=== PATIENT | male | born 1980 | race Caucasian/White ===

== ENCOUNTER → 2020-09-09 | Day surgery (SDC) | payer OTHER ==
[~2020-09-09] MED LIST: AMOXICILLIN500 MG PO; COREG 3.125M3.125 MG PO; MOTRIN600 MG PO; NORVASC5 MG PO; PERCOCET 5-3251 EACH PO; PHENERGAN25 M1 PO
[2020-09-09 08:56] LABS: BASOPHIL 0.5 % (0-2); EOSINOPHIL 1.6 % (0-5); HCT 43.3 % (42.0-52.0); HGB 14.8 g/dl (13.2-18.0); LYMPHOCYTE 27.3 % (15-48); MCHC 34.2 g/dL (32.0-36.0); MCV 87.7 fL (78.0-100.0); MONOCYTE 6.5 % (0-12); MPV 11.2 fL (6.0-9.5); NEUTROPHIL 63.9 % (41-80); NRBC 0; PLT 239 K/uL (150-400); RBC 4.94 M/uL (4.70-6.00); WBC 8.1 K/uL (4.0-10.5)
[2020-09-09 09:12] LABS: BUN/CREAT RATIO (CALC) 24.2 RATIO; CREATININE 0.91 mg/dL (0.67-1.17); POTASSIUM 3.9 mmol/L (3.5-5.1)
== END | disposition home or self-care (01) ==
LOC: FAS 08:04
PROVIDERS: Anesthesiology; Oral & Maxillofacial Surgery
DX: K02.63 Dental caries on smooth surface penetrating into pulp (principal); K04.7 Periapical abscess without sinus; K21.9 Gastro-esophageal reflux disease without esophagitis; K58.0 Irritable bowel syndrome with diarrhea; I10 Essential (primary) hypertension; G47.30 Sleep apnea, unspecified; Z87.891 Personal history of nicotine dependence; Z88.8 Allergy status to other drugs, medicaments and biological substances
CPT/HCPCS: 36415; 80048; 85025; 93005; J1100; J1885; J2250; J2370; J2405; J2704; J7120